=== PATIENT | female | born 1970 | race Caucasian/White ===

== ENCOUNTER 2025-02-15 14:59 | Inpatient (IN) | payer MEDICAID ==
[2025-02-15] MEDS ORDERED: Sodium Chloride 0.9% 10 ML Syringe FLUSH PRN (15:03)
[2025-02-15 15:12] LABS: PCO2 ARTERIAL 17.0 mmHg (35.0-45.0); PO2 ARTERIAL 137.0 mmHg (80.0-100.0)
[2025-02-15 15:13] LABS: BASE EXCESS ARTERIAL -22.7 (-2-2.0); BICARBONATE,ARTERIAL 5.2 meq/L (22.0-26.0); O2 SATURATION ARTERIAL 98.6 % (96.0-97.0)
[2025-02-15 15:19] LABS: BASOPHILS ABSOLUTE AUTO 0.1 K/mm3 (0.0-0.2); BASOPHILS PERCENT AUTO 0.4 % (0.0-1.0); EOSINOPHILS ABSOLUTE AUTO 0.0 K/mm3 (0.0-0.4); EOSINOPHILS PERCENT AUTO 0.0 % (0.0-6.0); IMMATURE GRAN ABSOLUTE AUTO 0.25 K/mm3 (0.00-0.05); IMMATURE GRAN PERCENT AUTO 1.6 % (0.0-0.4); LYMPHOCYTES ABSOLUTE AUTO 1.0 K/mm3 (1.0-4.8); LYMPHOCYTES PERCENT AUTO 6.3 % (24.0-44.0); MEAN PLATELET VOLUME 11.2 fl (9.4-12.3); MONOCYTES ABSOLUTE AUTO 1.3 K/mm3 (0.0-0.8); MONOCYTES PERCENT AUTO 8.2 % (0.0-8.0); NEUTROPHILS ABSOLUTE AUTO 13.2 K/mm3 (1.8-7.7); NEUTROPHILS PERCENT AUTO 83.5 % (41.0-71.0); NRBC ABSOLUTE 0.00 (0.00-0.02); NRBC PERCENT 0.0 % (0.0-0.2); PLATELET COUNT,PLT 324 K/mm3 (150-400); RED BLOOD CELL COUNT 3.90 M/mm3 (4.10-5.30); WHITE BLOOD CELL COUNT,WBC 15.74 K/mm3 (3.9-11.3)
[2025-02-15] MEDS: Iopamidol 755 Mg/ML 100 ML Bottle IVPUSH ONE (15:24)
[2025-02-15] MEDS: Sodium Chloride 0.9% 10 ML Syringe FLUSH ONE (15:24)
[2025-02-15 15:29] LABS: INR 1.1
[2025-02-15 15:31] LABS: PTT,PARTIAL THROMBOPLSTIN TIME 24.9 SECONDS (21.7-31.4)
[2025-02-15 15:40] LABS: A/G RATIO 0.8 (1-2); ALANINE AMINOTRANSFERASE,ALT 20 U/L (14-59); ASPARTATE AMNIOTRANSFERASE,AST 34 U/L (15-37); BILIRUBIN TOTAL 0.4 mg/dL (0.2-1.0); BLOOD UREA NITROGEN,BUN 83 mg/dL (7-18); CHLORIDE,CL 89 mEq/L (98-107); CREATINE KINASE,CK 840 U/L (26-192); CREATININE 4.8 mg/dL (0.55-1.02); ESTIMATED GFR 10 mL/min (>60); PROTEIN TOTAL,TP 6.6 g/dl (6.4-8.2); SODIUM,NA 132 mEq/L (136-145)
[2025-02-15 15:48] LABS: LACTIC ACID 7.0 mmol/L (0.4-2.0)
[2025-02-15 15:50] LABS: CARBON DIOXIDE,CO2 7 mEq/L (21-32); POTASSIUM,K 8.5 mEq/L (3.5-5.1)
[2025-02-15 15:51] LABS: ETHANOL BLOOD MEDICAL 0.00 gm% (0.00); TROPONIN I HIGH SENSITIVITY 272 pg/mL (<=51)
[2025-02-15] MEDS: Albuterol 0.083% 2.5 MG/3 ML Neb Soln NEB ONE ×2 (16:00)
[2025-02-15] MEDS: Insulin Regular, Human 100 Units/ML 10 ML Vial IV ONE (16:01)
[2025-02-15 16:02] LABS: APPEARANCE,URINE CLEAR (Clear); GLUCOSE,URINE 3+ (Negative); OCCULT BLOOD,URINE 3+ (Negative)
[2025-02-15] MEDS: Calcium Gluconate 10% 1 GM/10 ML SDV IVPUSH ONE (16:02)
[2025-02-15 16:12] LABS: BUPRENORPHINE SCREEN,URINE NEGATIVE (CUTOFF=10); METHADONE SCREEN, URINE NEGATIVE (CUTOFF=200); METHAMPHETAMINES SCREEN, URINE NEGATIVE (CUTOFF=500); OXYCODONE SCREEN,URINE NEGATIVE (CUT0FF=100); THC SCREEN,URINE 20 NG/ML NEGATIVE (CUTOFF=50)
[2025-02-15 16:17] LABS: EPITHELIAL CELLS,URINE 0-5 /hpf (0-5)
[2025-02-15 16:22] LABS: AMPHETAMINES SCREEN, URINE NEGATIVE (CUTOFF=500)
[2025-02-15 16:30] LABS: T4 FREE 0.90 ng/dL (0.76-1.46)
[2025-02-15 16:34] LABS: CORONAVIRUS COVID-19 NAA NEGATIVE (NEGATIVE); INFLUENZA A NAA NEGATIVE (NEGATIVE); RESPIRATORY SYNCYTIAL VIR NAA NEGATIVE (NEGATIVE)
[2025-02-15 16:42] LABS: BASE EXCESS ARTERIAL -15.9 (-2-2.0); BICARBONATE,ARTERIAL 11.2 meq/L (22.0-26.0); O2 SATURATION ARTERIAL 90.3 % (96.0-97.0); PCO2 ARTERIAL 30.0 mmHg (35.0-45.0); PO2 ARTERIAL 65.0 mmHg (80.0-100.0)
[2025-02-15 17:32] LABS: OSMOLALITY,SERUM 404 mosm/kg (280-300)
[2025-02-15] MEDS ORDERED: 50% Dextrose in Water 50 ML Syringe IVPUSH PRN (17:48)
[2025-02-15 18:19] LABS: GLUCOSE RANDOM 1328 mg/dL (70-99)
[2025-02-15 18:54] LABS: BLOOD UREA NITROGEN,BUN 71.0 mg/dL (7-18); CARBON DIOXIDE,CO2 15.0 mEq/L (21-32); CHLORIDE,CL 102.0 mEq/L (98-107); CREATININE 4.0 mg/dL (0.55-1.02); ESTIMATED GFR 13.0 mL/min (>60); PHOSPHORUS 7.0 mg/dL (2.6-4.7); POTASSIUM,K 5.3 mEq/L (3.5-5.1); SODIUM,NA 142.0 mEq/L (136-145)
[2025-02-15 19:15] LABS: EST CRCL DRUG DOSING (CG) 11.33 mL/min
[2025-02-15 19:17] LABS: GLUCOSE RANDOM 1033.0 mg/dL (70-99)
[2025-02-15 20:39] LABS: POTASSIUM,K 4.8 mEq/L (3.5-5.1)
[2025-02-15 22:33] LABS: BLOOD UREA NITROGEN,BUN 65.0 mg/dL (7-18); CARBON DIOXIDE,CO2 15.0 mEq/L (21-32); CHLORIDE,CL 110.0 mEq/L (98-107); CREATININE 3.9 mg/dL (0.55-1.02); EST CRCL DRUG DOSING (CG) 11.63 mL/min; ESTIMATED GFR 13.0 mL/min (>60); PHOSPHORUS 4.0 mg/dL (2.6-4.7); POTASSIUM,K 3.9 mEq/L (3.5-5.1); SODIUM,NA 151.0 mEq/L (136-145)
[2025-02-15 22:37] LABS: GLUCOSE RANDOM 719.0 mg/dL (70-99)
[2025-02-16] MEDS: cefTRIAXone 2 GM in Water For Injection, Sterile 20 ML IVPUSH SCH (00:20)
[2025-02-16 02:34] LABS: BLOOD UREA NITROGEN,BUN 64.0 mg/dL (7-18); CARBON DIOXIDE,CO2 20.0 mEq/L (21-32); CHLORIDE,CL 115.0 mEq/L (98-107); CREATININE 3.8 mg/dL (0.55-1.02); EST CRCL DRUG DOSING (CG) 11.93 mL/min; ESTIMATED GFR 13.0 mL/min (>60); PHOSPHORUS 3.2 mg/dL (2.6-4.7); POTASSIUM,K 3.9 mEq/L (3.5-5.1); SODIUM,NA 152.0 mEq/L (136-145)
[2025-02-16 02:46] LABS: GLUCOSE RANDOM 513.0 mg/dL (70-99)
[2025-02-16 06:21] LABS: BASOPHILS ABSOLUTE AUTO 0.0 K/mm3 (0.0-0.2); BASOPHILS PERCENT AUTO 0.3 % (0.0-1.0); EOSINOPHILS ABSOLUTE AUTO 0.0 K/mm3 (0.0-0.4); EOSINOPHILS PERCENT AUTO 0.0 % (0.0-6.0); IMMATURE GRAN ABSOLUTE AUTO 0.06 K/mm3 (0.00-0.05); IMMATURE GRAN PERCENT AUTO 0.8 % (0.0-0.4); LYMPHOCYTES ABSOLUTE AUTO 0.6 K/mm3 (1.0-4.8); LYMPHOCYTES PERCENT AUTO 8.1 % (24.0-44.0); MEAN PLATELET VOLUME 10.3 fl (9.4-12.3); MONOCYTES ABSOLUTE AUTO 0.5 K/mm3 (0.0-0.8); MONOCYTES PERCENT AUTO 6.0 % (0.0-8.0); NEUTROPHILS ABSOLUTE AUTO 6.7 K/mm3 (1.8-7.7); NEUTROPHILS PERCENT AUTO 84.8 % (41.0-71.0); NRBC ABSOLUTE 0.00 (0.00-0.02); NRBC PERCENT 0.0 % (0.0-0.2); RED BLOOD CELL COUNT 3.95 M/mm3 (4.10-5.30); WHITE BLOOD CELL COUNT,WBC 7.88 K/mm3 (3.9-11.3)
[2025-02-16 06:23] LABS: PLATELET COUNT,PLT 226 K/mm3 (150-400)
[2025-02-16 06:31] LABS: BLOOD UREA NITROGEN,BUN 67.0 mg/dL (7-18); CARBON DIOXIDE,CO2 20.0 mEq/L (21-32); CHLORIDE,CL 114.0 mEq/L (98-107); CREATININE 4.0 mg/dL (0.55-1.02); EST CRCL DRUG DOSING (CG) 12.13 mL/min; ESTIMATED GFR 13.0 mL/min (>60); GLUCOSE RANDOM 367.0 mg/dL (70-99); PHOSPHORUS 2.5 mg/dL (2.6-4.7); POTASSIUM,K 3.7 mEq/L (3.5-5.1); SODIUM,NA 149.0 mEq/L (136-145)
[2025-02-16] MEDS: Heparin Sodium/D5W 250 ML IV SCH (07:37)
[2025-02-16] MEDS: Heparin Sodium 5,000 Units/ML Vial IVPUSH ONE ×2 (07:38→07:48)
== END 2025-02-16 08:30 | disposition critical access hospital (66) | DRG 871 ==
LOC: JD.ED 14:59 → JD.ICU 17:46
PROVIDERS: ADMIT Family Medicine; ATTEND Family Medicine
DX: E10.10 Type 1 diabetes mellitus with ketoacidosis without coma (principal); A41.9 Sepsis, unspecified organism; E10.11 Type 1 diabetes mellitus with ketoacidosis with coma; J18.9 Pneumonia, unspecified organism; J96.01 Acute respiratory failure with hypoxia; I10 Essential (primary) hypertension; N17.9 Acute kidney failure, unspecified; E03.9 Hypothyroidism, unspecified; N28.0 Ischemia and infarction of kidney; M62.82 Rhabdomyolysis; R65.20 Severe sepsis without septic shock; E87.5 Hyperkalemia; D73.5 Infarction of spleen; E78.00 Pure hypercholesterolemia, unspecified; I12.9 Hypertensive chronic kidney disease with stage 1 through stage 4 chronic kidney disease, or unspecified chronic kidney disease; N18.9 Chronic kidney disease, unspecified; M54.9 Dorsalgia, unspecified; E86.0 Dehydration; G89.29 Other chronic pain; F41.9 Anxiety disorder, unspecified; F32.A Depression, unspecified; Z90.49 Acquired absence of other specified parts of digestive tract; Z79.82 Long term (current) use of aspirin; Z79.4 Long term (current) use of insulin; Z86.73 Personal history of transient ischemic attack (TIA), and cerebral infarction without residual deficits; Z79.899 Other long term (current) drug therapy; Z98.890 Other specified postprocedural states
CPT/HCPCS: 36415; 36600 ×2; 51701; 70450; 71275; 72125; 74177; 80053; 80143; 80179; 80306; 80307; 81001; 82140; 82550; 82803 ×2; 83605; 83690; 83735; 83880; 83930; 84439; 84443; 84484; 84703; 85025; 85610; 85730; 86850; 86900; 86901; 87040 ×2; 87086; 87637; 93005; 94640 ×2; 96361; 96365; 96374; 96375; 99285; C1758; J0612; J1815; J2543; J7030 ×4; J7613 ×2; Q9967; 80048; 82010; 82800; 82947; 84100; 84132; 87088; 87186; 93010; 93306; 94762; 99223; 99239; 99291; 99292; A4216; A9270-GY; J0696; J1644; J1650; J3373; J3480; J7050; S5010